=== PATIENT | male | born 1950 | race Caucasian/White ===

== ENCOUNTER 2016-08-04 11:05 | Emergency (ER) | payer OTHER ==
[2016-08-04 11:16] VITALS: TEMP 98; O2SAT 98
--- NOTE | 2016-08-04 11:17 | ED.PDOC ---
History of Present Illness - General Chief Complaint: Lower Extremity Injury Stated Complaint: right ankle injury Time Seen by Provider: 08/04/16 11:12 Source: patient - History of Present Illness Initial Comments: Patient presents after he stepped off a staircase and twisted his right ankle. He did fall to the ground. He has not tried to bear weight on it. No previous episodes. Pain is over the medial malleolus, non-radiating, worse with movement , better with rest. Timing/Duration: 1-3 hours Severity: moderate Improving Factors: rest Worsening Factors: movement Associated Symptoms: denies symptoms Allergies/Adverse Reactions: Allergies NO KNOWN ALLERGY Allergy (Verified 04/09/16 00:16) Home Medications: Ambulatory Orders Amlodipine Besylate [Norvasc] 10 mg PO DAILY 12/28/14 Levothyroxine Sodium [Synthroid] 0.2 mg PO 0700 12/28/14 Metformin HCl 500 mg PO BIDFD 12/28/14 Nebivolol HCl [Bystolic] 5 mg PO DAILY 12/28/14 Olmesartan Medoxomil-Hydrochlo [Benicar Hct 40-12.5 mg] 1 tab PO DAILY 12/28/14 Zolpidem Tartrate [Ambien] 10 mg PO BEDTIME 12/28/14 Acetamin W/Cod #3 Tab [Tylenol #3 Tab] 1 ea PO Q4-6H PRN #20 tab 04/09/16 Review of Systems - Review of Systems Constitutional: States: no symptoms reported EENTM: States: no symptoms reported Respiratory: States: no symptoms reported Cardiology: States: no symptoms reported Gastrointestinal/Abdominal: States: no symptoms reported Genitourinary: States: no symptoms reported Musculoskeletal: States: see HPI Skin: States: no symptoms reported Neurological: States: no symptoms reported Endocrine: States: no symptoms reported Hematologic/Lymphatic: States: no symptoms reported Past Medical History (General) - Patient Medical History Hx of COPD: Yes Hx Cardiac Disorders: Yes Hx Congestive Heart Failure: No Hx Hypertension: Yes Hx Thyroid Disease: Yes Hx Diabetes: Yes Hx Cancer: Yes - colon Hx Hepatitis C: No - Vaccination History Hx Tetanus, Diphtheria Vaccination: No Hx Influenza Vaccination: No Hx Pneumococcal Vaccination: No - Social History Hx Tobacco Use: Yes Hx Alcohol Use: No Hx Substance Use: No Hx Substance Use Treatment: No Hx Depression: No - Female History Patient is a Female of Child Bearing Age (10 -59 yrs old): No Patient : No Family Medical History - Family History Mother Family History: Unknown Living Status: Unknown Physical Exam - Physical Exam General Appearance: Alert Respiratory: lungs clear Cardiovascular/Chest: regular rate, rhythm Gastrointestinal/Abdominal: normal bowel sounds, non tender, soft Extremity: other - TTP over right medial malleolus. Mild edema. Full sensation in the entire foot. 2+ dorsal pedis pulses. Capillary refill less than 2 seconds. Patient can dorsiflex and plantarflex the foot against resistance but it is painful. He can leatha and invert the foot but it is also painful. Neurologic: no motor/sensory deficits Progress - Progress Progress: 08/04/16 13:40 3 view of the right ankle showed lateral and medial malleolar fractures with possible posterior malleolar fracture. 90 degree and sugar tong splint both applied for extra stability. Patient said he had pain medications at home. Ordered to follow up with Dr. Carranza in 3-4 days. Departure - Departure Clinical Impression: Closed fracture of ankle Disposition: Discharge to Home or Self Care Condition: Good Departure Forms: ED Discharge - Pt. Copy, Patient Portal Self Enrollment Diet: resume usual diet Activity: other - Use crutches until cleared by a physician Home Medications: Ambulatory Orders Amlodipine Besylate [Norvasc] 10 mg PO DAILY 12/28/14 Levothyroxine Sodium [Synthroid] 0.2 mg PO 0700 12/28/14 Metformin HCl 500 mg PO BIDFD 12/28/14 Nebivolol HCl [Bystolic] 5 mg PO DAILY 12/28/14 Olmesartan Medoxomil-Hydrochlo [Benicar Hct 40-12.5 mg] 1 tab PO DAILY 12/28/14 Zolpidem Tartrate [Ambien] 10 mg PO BEDTIME 12/28/14 Acetamin W/Cod #3 Tab [Tylenol #3 Tab] 1 ea PO Q4-6H PRN #20 tab 04/09/16 Additional Instructions: Follow up with orthopedics in 3-4 days.
--- NOTE | 2016-08-04 11:33 | RAD ---
EXAM DESCRIPTION: XR ANKLE 3 OR MORE VIEWS CLINICAL HISTORY: twisted during fall COMPARISON: None available FINDINGS: Two views of the right ankle show a slightly comminuted, mildly displaced distal right fibular fracture period lateral subluxation of the tibiotalar joint is noted, and there is a medial malleolar fracture with approximate 1 cm lateral displacement. There is a questionable nondisplaced posterior malleolar fracture. Calcaneal spurring is noted at the insertion sites of the plantar fashion Achilles tendon period IMPRESSION: Right ankle fracture/subluxation, including laterally displaced medial and lateral malleolar fractures with a questionable nondisplaced posterior malleolar fracture. If relevant, CT could be performed for further evaluation of the posterior malleolus. Electronically signed by: Ron Quispe DO 08/04/2016 11:31
[2016-08-04 14:20] VITALS: BP 122/64
== END 2016-08-04 14:20 | disposition home or self-care (01) ==
LOC: ER 11:05
DX: S82.891A Other fracture of right lower leg, initial encounter for closed fracture (principal); I10 Essential (primary) hypertension; E07.9 Disorder of thyroid, unspecified; E11.9 Type 2 diabetes mellitus without complications; Z85.038 Personal history of other malignant neoplasm of large intestine; Z87.891 Personal history of nicotine dependence; W10.9XXA Fall (on) (from) unspecified stairs and steps, initial encounter

== ENCOUNTER → 2017-08-15 | Outpatient (CLI) | payer MEDICARE ==
--- NOTE | 2017-08-15 15:05 | CT ---
EXAM DESCRIPTION: Chest w/Contrast : Computed Tomography. CLINICAL HISTORY: COUGH COMPARISON: CT scan of the chest without contrast 04/08/2016. TECHNIQUE: Spiral-axial scans at 5.0 mm intervals through the lungs and thorax with IV contrast. 2.5 mm lung algorithm axial reconstructions. Coronal and sagittal 2.0 mm Mm reconstructions. No adverse reactions. Total Exam DLP: 917.91 mGy-cm. This exam was performed according to our departmental dose-optimization program which includes automated exposure control, adjustment of the mA and/or kV according to patient size and/or use of iterative reconstruction technique; to reduce radiation dose to as low as reasonably achievable (ALARA). FINDINGS: Soft tissue nodule smooth borders without calcification in the subpleural posterior right lower lobe measuring mean diameter 5.4 mm. (Series 4, image 59). 3 mm soft tissue nodule or pleural thickening anterior right middle lobe at the same level slightly irregular borders. Soft tissue nodule subpleural location, smooth borders, posterior superior segment left lower lobe without calcification (image 45). 2 nodules with mean diameter less than 3 mm subpleural lateral inferior lingula smooth borders and no calcifications (series 76). Subpleural 3 mm nodule lateral right left upper lobe abutting pleura (image 44). Soft tissue nodule left upper lobe laterally subpleural noncalcified with smooth borders mean diameter 3.5 mm (image 22). 3 mm soft tissue nodule with smooth borders and no calcifications anterior right middle lobe (image 72). 3 millimeter soft tissue nodule lateral right middle lobe abutting the pleura with smooth borders no calcifications (image 81). At least 3 subpleural smooth bordered nodules or pleural nodules in the lateral right lower lobe, noncalcified and 3 mm or less in diameter. 4 mm soft tissue nodule abutting the pleura and the inferior lateral major fissure. No calcifications. Smooth Borders (image 92). Another nodule associated with the fissure at a slightly higher level, smooth borders, no calcifications (image 90). No acute infiltrate or pleural effusion or pneumothorax. Thyroid gland incompletely seen. Arteriographic vessels with atherosclerotic calcifications. Small normal-sized and normal-appearing lymph nodes in the axilla mediastinum and hilar regions. Stable 2 cm right adrenal mass. Normal size and enhancement of the included spleen pancreas and liver. No subdiaphragmatic free fluid. Spondylosis at several levels of the thoracic spine without bone destruction or compression fracture. Degenerative changes in the bilateral glenohumeral joints. Healed fracture of the right lateral posterior seventh rib. IMPRESSION: 1. Multiple bilateral soft tissue nodules, almost always smooth borders. Largest diameter 5.4 mm in the right lower lobe, stable since the prior study. Most of the nodules are 3 mm or less. Consider follow-up chest CT scan in 12-18 month interval. 2. No mediastinal or hilar adenopathy. Stable right adrenal adenoma. Electronically signed by: Domingo Mayberry MD 08/15/2017 3:04 PM [facility]
== END ==
LOC: CT 10:41
PROVIDERS: ATTEND Family Medicine
DX: R05 Cough (principal); F17.210 Nicotine dependence, cigarettes, uncomplicated; R91.8 Other nonspecific abnormal finding of lung field; D35.01 Benign neoplasm of right adrenal gland

== ENCOUNTER → 2017-12-04 | Outpatient (CLI) | payer MEDICARE ==
--- NOTE | 2017-12-04 09:46 | CT ---
EXAM DESCRIPTION: Chest w/Contrast : Computed Tomography. CLINICAL HISTORY: NON- HODGKIN LYMPHOMA COMPARISON: CT scan chest with contrast 08/15/2017. CT scan of abdomen and pelvis on this visit. TECHNIQUE: Spiral-axial scans at 5.0 mm intervals through the lungs and thorax with IV contrast. 2.5 mm lung algorithm axial reconstructions. 2.0 Mm reconstructions. No adverse reactions. Total Exam DLP: 885.98 mGy-cm. This exam was performed according to our departmental dose-optimization program which includes automated exposure control, adjustment of the mA and/or kV according to patient size and/or use of iterative reconstruction technique; to reduce radiation dose to as low as reasonably achievable (ALARA). FINDINGS: 4 mm soft tissue subpleural nodule in the left lateral apex on series 7, image 16. Stable since the prior study. 2 mm nodule or pleural tag more inferior on image 37, also stable 3.8 mm soft tissue subpleural nodule round oval-shaped in the lateral inferior lingula also stable. No change in adjacent nodule medially which is smaller. Stable soft tissue 3 mm subpleural nodule lateral left lower lobe on image 81, and multiple nodules more inferior, but of similar size and similar subpleural location on images 86, 89, and 93. 3 mm subpleural nodule posterior right apex on image 20 is stable. Multiple subpleural soft tissue nodules more inferiorly in the right upper lobe, right middle lobe, and right lower lobe including 2 nodules abutting the lateral horizontal fissure on images 85 and 87. Lateral right middle lobe soft tissue subpleural nodule on image 76. No new nodules or masses bilaterally. No infiltrates. No pleural effusion or pneumothorax. Minimal enhancement of the thyroid gland. No masses in the neck base. Atherosclerotic calcifications proximal brachiocephalic vessels and aortic arch and descending aorta. Small lymph node superior and middle mediastinum no significantly sized lymph nodes in the mediastinum hilum or axilla. Multiple levels of thoracic spondylosis. IMPRESSION: 1. Multiple bilateral subpleural soft tissue nodules in the lungs 4 mm and less in diameter, noncalcified, stable since the prior study. No new masses or infiltrates bilaterally. Optional thoracic CT scan with contrast in 12 month interval. Please see [facility] Best Practice recommendations following Fleischner Society 2017 recommendations for multiple pulmonary nodules. See below.* 2. Small lymph nodes in neck mediastinum and bilateral hilum stable since the prior study. No pleural effusion or pneumothorax. *2017 Fleischner Society Recommendations for Multiple Solid Lung Nodules Follow-Up base on size (average of long- and short-axis diameters). Use most suspicious nodule for followup. Nodule Size <6 mm Low-Risk Patient: No routine follow-up Nodule Size <6 mm High-Risk Patient: Optional CT at 12 months Nodule Size 6-8 mm Low-Risk Patient: CT at 3-[address] at 18-24 months Nodule Size 6-8 mm High-Risk Patient: CT at 3-6 months then at 18-24 months Nodule Size (mm) >8 Low-Risk Patient: CT at 3-6 months, then consider CT at 18-24 months Nodule Size (mm) >8 High-Risk Patient: CT at 3-6 months, then at 18-24 months Electronically signed by: Domingo Mayberry MD 12/04/2017 9:45 AM CDT
--- NOTE | 2017-12-04 10:20 | CT ---
EXAM DESCRIPTION: Abdomen/Pelvis w/wo Contrast: Computed tomography. CLINICAL HISTORY: Non-Hodgkin's LYMPHOMA COMPARISON: CT scan of the chest with IV contrast on this visit. TECHNIQUE: Spiral-axial scans at 5.0 mm intervals through the abdomen and pelvis before and after standard dose nonionic IV contrast. No oral contrast. Coronal and sagittal 2.0 mm reconstructions. No delayed scans. N no adverse reactions. Total Exam DLP 2464.29 mGy - cm. This exam was performed according to our departmental CT dose-optimization program which includes automated exposure control, adjustment of the mA and/or kV according to patient size and/or use of iterative reconstruction technique; to reduce radiation dose to as low as reasonably achievable (ALARA). FINDINGS: Liver, Stomach, Spleen, Adrenal Glands: Right adrenal gland is enlarged measuring 3.0 x 2.0 x 2.5 cm. Mean precontrast density is -27 HU. Average postcontrast density is +43 HU. Left adrenal gland unremarkable. Stomach is negative. Right lobe of the liver measures 21.6 cm. No focal lesions. Pancreas, Gallbladder, Ducts: Gallbladder is visualized. Normal surrounding fat. Common bile duct and pancreas are negative. Kidneys and Ureters: 1 cm cyst posterior cortex upper left kidney. Multiple other nonenhancing cortical objects to small to be resolved by CT scan. Kidneys and ureters otherwise negative. Mesentery: No stranding or fascial thickening. No free air or ascites. Aorta: Atherosclerotic calcification minimal 3.1 x 2.8 cm caliber just above the bifurcation. Ectasia of the proximal common iliac arteries especially at the bilateral iliac bifurcations.. Small Bowel: Negative. Terminal Ileum/Cecum: Normal caliber of these organs in the appendix which contains gas. Normal density of the surrounding mesentery. Colon: Diffuse fecal material with diverticula distally. No complications. Rectosigmoid anastomosis has been performed with normal surrounding fatty density.. Pelvic Organs: Calcification of the prostate gland abutting the base of the urinary bladder. No fluid in the anterior peritoneal reflection. No radiodense stones in the bladder which has minimal wall thickening. Spine and Bony Pelvis: Narrowing of inferior thoracic disc spaces and anterior spur formation. Minimal narrowing of the bilateral L5-S1 foramina Abdominal Wall/Back Soft Tissues: Diastases at the umbilicus but no bowel in the space. Bilateral fatty inguinal hernias not containing bowel. IMPRESSION: 1. No significant adenopathy in the abdomen or pelvis no free fluid no peritoneal or retroperitoneal masses. 2. 3 cm right adrenal mass with fatty density precontrast and enhancement is most likely an adrenal adenoma or small myolipoma. No further imaging is recommended. 3. Multiple cortical objects left kidney are most likely cysts. Too small to be resolved by CT scan. Can be evaluated by ultrasound if clinically indicated. 4. 3.1 cm distal abdominal aortic aneurysm. Diffuse aneurysmal dilation of the bilateral proximal common iliac arteries more on the right. [facility] Best Practice recommendations suggest imaging follow-up every 3 years for an aneurysm of this size. Please see below.* 5. Diverticulosis of the distal colon with no complications. Prior rectosigmoid anastomosis. Calcific prostate gland impressing on the base of the urinary bladder with questionable wall thickening of the bladder. Umbilical diastases and bilateral fatty inguinal hernias without complications. * AAA Size: Follow-up Recommendation (1): 2.6 - 2.9 cm Every 5 years (2) 3.0 - 3.4 cm Every 3 years 3.5 - 3.9 cm Every 12 months 4.0 - 4.4 cm Every 12 months, vasc consult rec 4.5 - 5.4 cm Every 6 months, vasc consult rec >=5.5 cm Referral to vascular surgeon recommended (1)Based upon the Society for Vascular Surgery Guidelines: J Vasc Surg. 2009 Apr;50(4 Suppl):S2-49 (2)For aortas of max roseanne of 2.6-2.9 cm that meet criteria for AAA (>= 1.5 x proximal normal segment) Electronically signed by: Domingo Mayberry MD 12/04/2017 10:19 AM CDT
== END ==
LOC: CT 08:00
PROVIDERS: ATTEND Internal Medicine Hematology & Oncology
DX: C85.94 Non-Hodgkin lymphoma, unspecified, lymph nodes of axilla and upper limb (principal); C85.95 Non-Hodgkin lymphoma, unspecified, lymph nodes of inguinal region and lower limb

== ENCOUNTER → 2018-07-11 | Outpatient (CLI) | payer MEDICARE | LOC: GMAE 10:57 | PROVIDERS: ATTEND Family Medicine | DX: E03.9 Hypothyroidism, unspecified (principal); Z12.5 Encounter for screening for malignant neoplasm of prostate | CPT/HCPCS: 84439; 84443; 84481; G0103 ==

== ENCOUNTER → 2018-07-12 | Outpatient (CLI) | payer MEDICARE ==
--- NOTE | 2018-07-12 16:28 | US ---
EXAM DESCRIPTION: Abdomen,Complete CLINICAL HISTORY: AAA SCREENING, ENCOUNTER FOR SCREENING FOR OTHER DISORDER COMPARISON: CT abdomen December 04, 2017 TECHNIQUE: Complete abdominal ultrasound FINDINGS: Visualized portions of the pancreas are unremarkable. No peripancreatic fluid. Bowel gas obscures some areas. Previous CT December 04, 2017 showed infrarenal abdominal aortic aneurysm 3.3 cm. The present study does not show any aneurysm. Bowel gas limits visualization of the aorta however. Repeat noncontrast CT is recommended for better comparison with previous study December 04, 2017. Inferior vena cava is not well seen. Liver parenchyma is homogeneous in texture with increased echogenicity. No liver mass or intrahepatic bile duct dilatation. No liver surface irregularity. Liver is enlarged measuring 21 cm in length. Normal appearance of hepatic veins and portal vein. Gallbladder appears normal with no intraluminal stones. No gallbladder wall thickening. Common bile duct is normal in caliber measuring 5.6 mm. The right kidney measures 11.9 cm in length. Normal renal cortical echogenicity. The renal cortical thickness appears normal. No right renal mass, shadowing stone or cyst. There is no hydronephrosis. Spleen is normal in size. No focal splenic lesion. The left kidney measures 12.4 cm in length. Normal renal cortical echogenicity. The renal cortical thickness appears normal. No left renal mass, shadowing stone or cyst. There is no hydronephrosis. IMPRESSION: Enlarged liver with diffuse hepatic steatosis. Limited visualization of the aorta. See above. Electronically signed by: Cristóbal Glynn MD 07/12/2018 4:27 PM [facility]
== END ==
LOC: US 12:57
PROVIDERS: ATTEND Family Medicine
DX: Z13.89 Encounter for screening for other disorder (principal); K76.0 Fatty (change of) liver, not elsewhere classified

== ENCOUNTER → 2019-01-06 | Outpatient (CLI) | payer MEDICARE | LOC: LAB.O 07:50 | PROVIDERS: ATTEND Family Medicine | DX: E11.9 Type 2 diabetes mellitus without complications (principal); I10 Essential (primary) hypertension; F17.200 Nicotine dependence, unspecified, uncomplicated ==

== ENCOUNTER → 2019-01-15 | Outpatient (CLI) | payer MEDICARE ==
--- NOTE | 2019-01-15 16:44 | CT ---
EXAM DESCRIPTION: Chest w/Contrast CLINICAL HISTORY: NODULES COMPARISON: December 04, 2017 and April 08, 2016 TECHNIQUE: Postcontrast CT images of the chest are obtained using standard imaging protocol. This exam was performed according to our departmental dose-optimization program, which includes automated exposure control, adjustment of the mA and/or kV according to patient size and/or use of iterative reconstruction technique . FINDINGS: Elongation and tortuosity the thoracic aorta with mild scattered calcified plaque. The heart is unremarkable. No pathologically enlarged mediastinal, hilar, or axillary lymphadenopathy. 1 cm axillary lymph nodes are stable. Visualized upper abdomen shows enlargement of liver with diffuse fatty infiltration. 3 cm right adrenal gland mass is homogeneous with Hounsfield units of -7 stable from previous consistent with adrenal adenoma. Lungs are normally aerated. Mild peripheral increased interstitial thickening mainly in the upper lobes are seen. Bronchiectasis and interstitial nodular thickening in the lingula of the left upper lobe is more prominent on today's exam than previous. Multiple less than 5 mm noncalcified pulmonary nodules are overall stable in size and number given differences in imaging technique and slice selection compared to April 08, 2016. Osseous structures show no aggressive bony lesions. Moderate disc degenerative changes of the spine are seen. Healed right-sided rib fractures. IMPRESSION: Stable bilateral pulmonary nodules measuring 6 mm. No interval exchange mechanic greater than 2 years suggesting benign etiology of these nodules. More prominent interstitial thickening and bronchiectasis in the lingula of the left upper lobe compared to previous exam likely represents infectious or inflammatory process versus scarring or atelectasis. Consider short-term imaging follow-up in 3-6 months. Chronic interstitial changes to lungs are stable from previous. Stable hepatomegaly. Stable right adrenal adenoma. Stable 3 cm right adrenal adenoma. No further imaging follow-up. Electronically signed by: Rickie Armendariz MD 01/15/2019 4:42 PM CDT
== END ==
LOC: CT 11:00
PROVIDERS: ATTEND Family Medicine
DX: R91.8 Other nonspecific abnormal finding of lung field (principal); R16.0 Hepatomegaly, not elsewhere classified; D35.01 Benign neoplasm of right adrenal gland; I10 Essential (primary) hypertension

== ENCOUNTER → 2020-05-12 | Outpatient (CLI) | payer MEDICARE ==
--- NOTE | 2020-05-13 12:37 | CT ---
EXAM DESCRIPTION: Chest w/o Contrast CLINICAL HISTORY: 70 years Male, MULTIPLE NODULES OF LUNG TECHNIQUE: This exam was performed according to our departmental dose-optimization program, which includes automated exposure control, adjustment of the mA and/or kV according to patient size and/or use of iterative reconstruction technique. COMPARISON: January 15, 2019, 12/04/2017 FINDINGS: No axillary adenopathy. Atherosclerotic plaque in the thoracic aorta. No pericardial effusion. Stable benign right adrenal adenoma. No evidence of acute process in the visualized upper abdomen. Hepatic steatosis. No mediastinal adenopathy. No pneumothorax. No pleural effusion. Similar preferential upper lobe emphysema. Stable benign solid noncalcified sub-6 mm pulmonary nodules. There is no new or suspicious pulmonary nodule identified. No focal consolidation. No acute or suspicious osseous abnormality. Scattered degenerative changes present. IMPRESSION: Stable benign pulmonary nodules. No suspicious pulmonary nodule identified. Electronically signed by: Jerome Vazquez MD 05/13/2020 12:35 PM CDT
--- NOTE | 2020-05-13 12:47 | RAD ---
EXAM DESCRIPTION: Foot,Left 3 Views CLINICAL HISTORY: 70 years Male, PAIN IN LEFT FOOT COMPARISON: March 22, 2012 Findings: 3 view(s)/radiograph(s) No acute fracture or dislocation. Lisfranc alignment is maintained. Similar osseous excrescence at the base of the first metatarsal. Similar bipartite os peroneum. Moderate first MTP arthropathy. No osseous erosion. Mild scattered degenerative changes. IMPRESSION: No acute osseous abnormality in the left foot. Electronically signed by: Jerome Vazquez MD 05/13/2020 12:46 PM CDT
--- NOTE | 2020-05-13 12:48 | RAD ---
EXAM DESCRIPTION: Knee,Right Complete CLINICAL HISTORY: 70 years Male, PAIN IN RIGHT KNEE COMPARISON: None. Findings: Four views/radiographs Location: Right knee No acute fracture or dislocation. Mild right knee osteoarthritis. No significant joint effusion. IMPRESSION: No evidence of acute process in the right knee. Electronically signed by: Jerome Vazquez MD 05/13/2020 12:46 PM CDT
--- NOTE | 2020-05-13 14:04 | RAD ---
XR SHOULDER 2 OR MORE VIEWS HISTORY: 70 years Male PAIN IN RIGHT SHOULDER COMPARISON: None. TECHNIQUE: 4 views of the right shoulder. FINDINGS: No acute fracture or dislocation. Degenerative cystic changes are present in the humeral head. No aggressive osseous lesion detected. Mild degenerative changes are present in the acromioclavicular joint. Moderate narrowing of the glenohumeral joint space with associated osteophytosis of the humeral head and glenoid. 6 mm ovoid calcific density projecting inferior to the humeral head may represent a small intraosseous loose body. Acromiohumeral and coracoclavicular intervals appear within normal limits. IMPRESSION: Moderate degenerative changes of the right glenohumeral joint with possible intra-articular loose body. Mild degenerative changes of the right AC joint. Electronically signed by: Nicolas Christopher MD 05/13/2020 2:03 PM CDT
== END ==
LOC: LAB.O 11:04
PROVIDERS: ATTEND Family Medicine
DX: M25.561 Pain in right knee (principal); M25.562 Pain in left knee; M19.011 Primary osteoarthritis, right shoulder; M79.672 Pain in left foot; R91.8 Other nonspecific abnormal finding of lung field; I10 Essential (primary) hypertension; Z12.5 Encounter for screening for malignant neoplasm of prostate; E78.5 Hyperlipidemia, unspecified
CPT/HCPCS: 71250; 73030; 73562; 73630; 80061; 81001; G0103

== ENCOUNTER → 2020-05-19 | Outpatient (CLI) | payer MEDICARE ==
--- NOTE | 2020-05-19 13:41 | RAD ---
Study: 3 Views of the Left Foot. Indication: INJURY OF FOOT Comparison: May 12, 2020 Impression: Moderate osteoarthritis first MTP joint with mild changes first IP joint. Multipartite accessory peroneum bone. Prominent plantar calcaneal heel spur. Mild soft tissue swelling throughout the foot. No acute fracture identified. If high concern for nondisplaced fracture, correlation with MRI recommended. Electronically signed by: Adriel Oates MD 05/19/2020 1:40 PM CDT
--- NOTE | 2020-05-19 16:13 | US ---
EXAM DESCRIPTION: Extremity,Lower LT Arteries: Ultrasound. CLINICAL HISTORY: ABNORMAL FOOT PULSE. LEFT COMPARISON: None. TECHNIQUE: Doppler evaluation of the left lower extremity arterial flow waveforms and velocities. FINDINGS: Arterial waveforms in the left lower extremity are multiphasic from the left common femoral artery to the left dorsalis pedis artery.. Comments: No significant abnormalities of the arterial velocities. Slight elevation of the distal left SFA velocity. IMPRESSION: Doppler ultrasound of the bilateral lower extremity arterial system shows no evidence of significant atherosclerotic occlusive disease.. Electronically signed by: Domingo Mayberry MD 05/19/2020 4:11 PM CDT
== END ==
LOC: RAD 12:35
PROVIDERS: ATTEND Family Medicine
DX: S99.922A Unspecified injury of left foot, initial encounter (principal); R09.89 Other specified symptoms and signs involving the circulatory and respiratory systems; M19.072 Primary osteoarthritis, left ankle and foot; M79.9 Soft tissue disorder, unspecified; M77.32 Calcaneal spur, left foot; M89.8X7 Other specified disorders of bone, ankle and foot